=== PATIENT | female | born 1985 | race Caucasian/White ===

== ENCOUNTER → 2016-07-19 | Outpatient (CLI) | payer MEDICAID ==
[~2016-07-19] MED LIST: PREN1TAB73 PO
--- NOTE | 2016-07-19 11:02 | DI ---
Indication: ITS.REASON: R22.41 LOCALIZED SWELLING and pain of anterior right ankle, MASS AND LUMP, LOWER LIMB; S93.401D. 23 week . Patient wished to proceed with examination. PROCEDURE: TIB-FIB RIGHT 2 VIEW: Encounter: Initial Comparison: 10/21/2015 Findings: The bony shafts of the right tibia and fibula are intact with no cortical angulation, focal osteolysis or periosteal reaction. The knee joint and ankle mortise are symmetrical. Soft tissues show no evidence of foreign body or abnormal calcification. Impression: Negative right tibia and fibula. .
--- NOTE | 2016-07-19 11:10 | DI ---
Indication: ITS.REASON: S93.401D SPRAIN OF UNSPECIFIED LIGAMENT OF RT ANKLE, fall one week ago with anterior ankle pain and swelling. PROCEDURE: ANKLE RIGHT 3 VIEW: Encounter: Initial Comparison: 08/01/2012 Findings: There is no acute fracture, dislocation or malalignment identified. The ankle mortise is symmetrical. The talocalcaneal joint space is maintained. No avulsion injury is seen off the lateral or medial malleolus. There is no abnormal plantar calcaneal spurring. Soft tissue is unremarkable with only mild swelling laterally and anteriorly. Impression: No acute osseous abnormality. .
== END ==
LOC: IMA 09:39
PROVIDERS: ATTEND Internal Medicine
DX: R22.41 Localized swelling, mass and lump, right lower limb (principal); Z91.81 History of falling; Z3A.23 23 weeks gestation of pregnancy
CPT/HCPCS: 36415; 85379

== ENCOUNTER → 2016-07-20 | Outpatient (CLI) | payer MEDICAID ==
--- NOTE | 2016-07-20 13:12 | DI ---
EXAM: US VENOUS DUPLEX, LOWER EXT RT LOCATION OF DICTATION: [facility]. HISTORY: ITS.REASON: R22.41 COMPARISON: None available. DESCRIPTION: Color Doppler interrogation was performed. There is no evidence for deep venous thrombosis. There is good color Doppler flow, normal venous wave forms with respiratory variation and augmentation and compressibility from the common femoral vein, SFV, popliteal vein to at least the veins in the distal calf(s). IMPRESSION: No evidence for deep venous thrombosis. .
== END ==
LOC: IMA 12:09
PROVIDERS: ATTEND Internal Medicine
DX: R22.41 Localized swelling, mass and lump, right lower limb (principal)

== ENCOUNTER 2016-11-08 15:19 | Inpatient (IN) ==
[2016-11-08] MEDS ORDERED: DiphenhydrAMINE 25 MG CAPSULE PO PRN ×2 (15:44→19:05)
[2016-11-08] MEDS ORDERED: ACETAMINOPHEN 500 MG TABLET PO PRN ×2 (15:45→19:05)
[2016-11-08] MEDS: LR 1,000 ML IV SCH ×3 (16:20→22:28)
[2016-11-08 16:43] VITALS: BMI 40.1
[2016-11-08] MEDS ORDERED: FAMOTIDINE PB 20 MG/50 ML BAG IV ONE (17:01)
[2016-11-08] MEDS ORDERED: CEFAZOLIN PREMIX (MC ONLY) 2 GM/50 ML BAG IV ONE (17:01)
[2016-11-08] MEDS ORDERED: CITRIC ACID/SODIUM CITRATE 30ml PO ONE (17:01)
[2016-11-08] MEDS ORDERED: CEFAZOLIN 1 G INJECTION IVP ONE (17:12)
--- NOTE | 2016-11-08 17:13 | Anesthesia Preoperative Report ---
Anesthesia Epidural/Spinal Rec - Date and Time Date: 11/08/16 Preoperative Diagnosis: distress Procedure: Plan: Spinal - Vital Signs Vital Signs: Temperature 98.6 F 11/08/16 16:45 Pulse Rate 85 11/08/16 16:45 Respiratory Rate 20 11/08/16 16:45 Blood Pressure 110/67 11/08/16 16:45 Pulse Oximetry 100 11/08/16 16:45 /Para: P:1 - Medictaions & Allergies Inpatient Medications: Current Medications Acetaminophen (Tylenol) 500 - 1,000 mg PO ONE TIME PRN PRN Reason: Discomfort Last Admin: 11/08/16 15:49 Dose: 1,000 mg Diphenhydramine HCl (Benadryl) 25 - 50 mg PO Q6H PRN PRN Reason: Itching Last Admin: 11/08/16 15:49 Dose: 50 mg Lactated Ringer's (Lactated Ringers) 1,000 mls @ 999 mls/hr IV .Q1H1M TATE Last Admin: 11/08/16 17:05 Dose: 999 mls/hr Famotidine/Sodium Chloride (Pepcid Premix) 20 mg in 50 mls @ 100 mls/hr IV PREOP ONE Stop: 11/08/16 17:30 Cefazolin Sodium/Dextrose (Kefzol Premix (Mc Only)) 2 gm in 50 mls @ 100 mls/ hr IV PREOP ONE Stop: 11/08/16 17:30 Allergies/Adverse Reactions: Allergies Allergy/AdvReac Type Severity Reaction Status Date / Time acetaminophen Allergy Unknown Verified 10/31/16 16:32 vilazodone Allergy Unknown UNKNOWN Verified 07/13/16 15:56 hydrocodone bit Allergy Unknown HIVES Uncoded 07/13/16 15:56 - Home Medications Home Medications: Home Medications Medication Instructions Recorded Confirmed Type Pnv95/Ferrous Fumarate/FA 1 tab PO DAILY #90 tab 07/13/16 History [ Tablet] Iron 10/31/16 History Vitamin C 10/31/16 History - Medical History Respiratory: Reports: Other (smoker) Cardiovascular: DENIES: Abnormal EKG, Angina, Arrhythmia, Congestive Heart Failure, Coronary Artery Disease, Heart Murmur, Hypertension, Hypotension, High Cholesterol, Myocardial Infarction, Rheumatic Fever, Valvular Heart Disease, Other Gastrointestional: Reports: Gastroesophageal Reflux Disease, Morbid Obesity Neuro/Musculoskeletal: Reports: Back Problems (lower back pain chronic) Renal/Endocrine: DENIES: Diabetes Mellitus Type 1, Diabetes Mellitus Type 2, Renal Failure, Dialysis, Thyroid Disease, Weight Loss, Weight Gain, Other Other History: Reports: Now, Other (multiple psych disorders) Anesthesia Reactions: nausea and vomiting - Surgical History HEENT Surgeries: Reports: Tonsillectomy Anesthesia Reactions: None Hx Family Anesthesia Reaction: No History of Motion Sickness: No - Social History Smoking Status: Current every day smoker packs per day: 0.5 Pack-years: 10 (+) Second Hand Exposure: Yes Substance Use Type: other (Denies use) - Pertinent Findings Lab Data: CBC and BMP 11/08/16 16:26 Urine 11/08/16 Range/Units 15:20 Urine Color Yellow (YELLOW) Urine Clarity Cloudy Urine pH 6.5 (5.0-8.0) Ur Specific [place] 1.025 (1.015-1.025) Urine Protein Trace A (NEGATIVE) Urine Glucose (UA) Negative (NEGATIVE) EKG Rhythm: Sinus Tachycardia - Physical Exam Respiratory Exam: lungs clear, bilateral breath sounds equal Cardiovascular Exam: regular rate and rhythm, no murmur - Airway Assessment Mallampati Score: III TMD: 3 Fingerbreadths Neck Extension: fair Overall Assessment: may be difficult intubation - ASA ASA Score: 3, E - Discussion Discussion: Discussed risks/options/alternatives of anesthesia and questions answered. Patient consents. Nursing pain assessment noted. Anesthesia Discussion: family member Attestation Statement: Prior to the delivery of any anesthetic medication, I examined the patient, developed the plan, obtained the patient's consent and discussed the risk and benefits of the procedure with the patient/guardian.
[2016-11-08] MEDS ORDERED: FentaNYL 100 MCG/2 ML INJECTION ONE (17:17)
[2016-11-08] MEDS ORDERED: MORPHINE SULFATE PF 5mg/10ml INJ (Duramorph) ONE (17:17)
[2016-11-08] MEDS ORDERED: ONDANSETRON 4 MG/2 ML INJECTION ONE (18:08)
[2016-11-08] MEDS ORDERED: EPHEDRINE 50mg/ml INJECTION ONE (18:08)
[2016-11-08] MEDS ORDERED: OXYTOCIN DRIP 30 UNIT/500 ML ML IV SCH ×2 (18:15→19:05)
[2016-11-08] MEDS ORDERED: D5LR 1,000 ML IV SCH (19:05)
[2016-11-08] MEDS ORDERED: SALINE FLUSH 10ml SYRINGE IVF PRN (19:05)
[2016-11-08] MEDS ORDERED: SIMETHICONE 80 MG CHEWABLE TABLET PO PRN (19:05)
[2016-11-08] MEDS ORDERED: HYDROCORTISONE 2.5% CREAM 30gm RECTALLY PRN (19:05)
[2016-11-08] MEDS ORDERED: CALCIUM CARBONATE Chewable 500mg TABLET PO PRN (19:05)
[2016-11-08] MEDS ORDERED: NALOXONE 2 MG/2 ML INJECTION PFS IVP PRN (19:14)
[2016-11-08] MEDS ORDERED: ONDANSETRON 4 MG/2 ML INJECTION IVP PRN (19:14)
[2016-11-08] MEDS ORDERED: DiphenhydrAMINE 50 MG/ML INJECTION IVP PRN (19:14)
[2016-11-08] MEDS: Oxycodone/Acetaminophen 5/325 1 TAB PO PRN (19:51)
[2016-11-08] MEDS: IBUPROFEN 800 MG TABLET PO PRN (19:51)
[2016-11-08] MEDS: SIMETHICONE 80 MG CHEWABLE TABLET PO SCH ×2 (21:23→21:26)
[2016-11-09] MEDS: Oxycodone/Acetaminophen 5/325 1 TAB PO PRN ×4 (03:49→23:38)
--- NOTE | 2016-11-09 08:24 | Operative Note ---
DATE OF SURGERY: 11/08/2016 PREOPERATIVE DIAGNOSIS 1. 31-year-old white female, G2, P1 at 39 weeks 4 days gestational age. 2. Nonreassuring heart tones. 3. Previous demise. 4. Maternal psychiatric issues. POSTOPERATIVE DIAGNOSIS 1. Nuchal cord x1 - tight. 2. Male , Apgars, 3988 grams (8 pounds 13 ounces), (Mario Jefferson). PROCEDURES: Primary low transverse section. EBL: 600 mL ANESTHESIA: Spinal by Nghia Blas CRNA SURGEON: Levy Gregory MD BIOMETRICS ANALYST: Maria Antonia Ortega MD HISTORY This is a patient who has had a previous IUFD with multiple anomalies that delivered at [place] with her last around 28 weeks. This is genetically tested appropriately. She came in today for possible rupture of membranes and lower abdominal pain. Her AmniSure was negative but her heart tones had repetitive variable decelerations and were not reactive. This was despite IV fluid bolus and position changes. Because of her past history and her current nonreassuring heart tones status and the fact her cervix was closed and high, then we proceeded with a for delivery. She was on the schedule for two days from now for induction. DESCRIPTION OF PROCEDURE After adequate spinal anesthesia, the patient was prepped and draped in the left lateral decubitus position. A Pfannenstiel skin incision was made with a sharp knife and carried down to the fascia, which was incised transversely with the Clemons scissors. The rectus fascia was bluntly and sharply dissected off the rectus muscle. The rectus muscle was divided, and the peritoneum was isolated, elevated, entered with the Metzenbaum scissors and extended cephalad and caudad. The bladder blade was then inserted. No bladder flap as the bladder was very low on the uterus. The bladder blade was reinserted. Then using a sharp knife, a transverse incision was made in the lower uterine segment. This was extended with my fingers. Male was delivered from the vertex position without difficulty. There was a nuchal cord x1 that was tight and was reduced at delivery. Infant's shoulders were also wide and difficult to deliver but we were able to do so. Cord was doubly clamped and cut and the was received by Dr. Cedeno of Pediatrics. Placenta was expressed and held. The placenta was expressed manually and was intact. The uterus was then allowed to fall upon the external abdominal wall. The endometrial cavity was cleansed using moist lap sponges. The uterus was closed using 0-Monocryl in a running locking fashion. Hemostasis was confirmed. The posterior cul-de-sac was cleansed of old blood clots and the tubes and ovaries were examined and found to be normal in size, shape and appearance. After hemostasis was again confirmed, the uterus was then carefully returned to the abdominal cavity. The abdomen was then closed in layers. The peritoneum was closed using 2-0 Vicryl in running nonlocking fashion. The fascia was closed using 0-Vicryl in a running nonlocking fashion bilaterally from the lateral aspects medially. Hemostasis was achieved with the subcutaneous tissue and then the skin was closed using wide sera in a serial fashion. The patient tolerated the procedure well and went to the recovery room in stable condition. Pad, sponge and needle counts were correct and urine postop was clear and free flowing. MTDD
--- NOTE | 2016-11-09 08:28 | Progress Note ---
OB PP Progress Note Free Text - Date Date: 11/09/16 - Progress Note Progress Note: vss af hgb stable baby still in SCN will restart GERD med wants to restart antidepressant but unsure what she was taking so she will find out from upper caser q&a-shashab
[2016-11-09] MEDS: DOCUSATE CALCIUM 240 MG CAPSULE PO SCH (09:09)
[2016-11-09] MEDS: SIMETHICONE 80 MG CHEWABLE TABLET PO SCH ×4 (09:09→22:52)
[2016-11-09] MEDS: IBUPROFEN 800 MG TABLET PO PRN ×2 (09:09→19:08)
[2016-11-09] MEDS: OMEPRAZOLE 20 MG CAPSULE PO SCH ×2 (12:34→22:52)
[2016-11-09] MEDS: TRAZODONE 50 MG TABLET PO SCH (22:51)
[2016-11-10] MEDS: Oxycodone/Acetaminophen 5/325 1 TAB PO PRN (03:40)
[2016-11-10] MEDS: IBUPROFEN 800 MG TABLET PO PRN ×3 (05:26→21:56)
[2016-11-10] MEDS: TRAZODONE 50 MG TABLET PO SCH ×2 (08:53→21:56)
[2016-11-10] MEDS: OMEPRAZOLE 20 MG CAPSULE PO SCH ×2 (08:53→17:30)
[2016-11-10] MEDS: DOCUSATE CALCIUM 240 MG CAPSULE PO SCH (09:10)
[2016-11-10] MEDS: SIMETHICONE 80 MG CHEWABLE TABLET PO SCH ×3 (09:10→21:56)
--- NOTE | 2016-11-10 11:03 | Progress Note ---
OB PP Progress Note Free Text - Date Date: 11/10/16 - Progress Note Progress Note: vss af baby back in scn pt slept well last night with Trazadone-pt was on that in past she said so will continue having problems finding out what she was on in past for phys - will call again today q&a-krb
--- NOTE | 2016-11-10 17:57 | Progress Note ---
OB PP Progress Note Free Text - Date Date: 11/10/16 - Progress Note Progress Note: baby still in scn disc her previous meds - cymbalta, trazadone, respiradol pt declines restarting anything but the trazadone we restarted last night. q&a-krb
[2016-11-10 21:27] VITALS: O2SAT 98
[2016-11-11] MEDS: SIMETHICONE 80 MG CHEWABLE TABLET PO SCH ×2 (01:10→09:03)
[2016-11-11] MEDS: OMEPRAZOLE 20 MG CAPSULE PO SCH (05:48)
[2016-11-11] MEDS: IBUPROFEN 800 MG TABLET PO PRN (05:48)
[2016-11-11 08:51] VITALS: BP 136/81; PULSE 86; RESP 14; TEMP 98.1
[2016-11-11] MEDS: TRAZODONE 50 MG TABLET PO SCH (09:03)
[2016-11-11] MEDS: DOCUSATE CALCIUM 240 MG CAPSULE PO SCH (09:03)
--- NOTE | 2016-11-11 09:03 | OB/GYN Progress Note ---
OB-PP Progress Note - General PPD3 - Subjective Date: 11/11/16 Lochia: Minimal Pain: contolled Voiding: voiding Subjective Comments: Baby is still in SCN. - Objective Vital Signs: Last Vital Signs Temp 98.1 F 11/11/16 05:30 Pulse 86 11/11/16 05:30 Resp 14 11/11/16 05:30 BP 136/81 11/11/16 05:30 Pulse Ox 98 11/10/16 20:45 Urine Output: good General: alert and oriented Abdomen: fundus firm, non-tender, soft, non-distended Incision: normal, intact Extremities: non-tender Edema Degree: 1+ - Assessment Assessment: Primary C/S - Plan Plan: routine care, discharge home, continue PNV
--- NOTE | 2016-11-11 09:06 | Discharge Instructions ---
Discharge Plan - Med Rec/Dispo Prescriptions: New Oxycodone/APAP 5/325 [Percocet 5/325] 1 - 2 tab PO Q4H PRN #40 tab PRN Reason: Pain Ibuprofen [Motrin] 800 mg PO Q8H PRN #30 tab PRN Reason: Pain Trazodone [Desyrel] 50 mg PO BID #60 tab Continue Pnv95/Ferrous Fumarate/FA [ Tablet] 1 tab PO DAILY #90 tab Iron Vitamin C Discharge Instructions/Outpatient Orders: Final Provider Discharge Instructions Time Frame: 11/11/16, Location: Determined By Patient - Disposition 01 Discharged Home, Self-Care
== END 2016-11-11 09:55 | disposition home or self-care (01) | DRG 766 ==
LOC: OBOBS 15:19 → MC 15:20
PROVIDERS: ADMIT Obstetrics & Gynecology; ATTEND Obstetrics & Gynecology